=== PATIENT | female | born 1940 | race Caucasian/White ===

== ENCOUNTER 2023-10-15 10:48 | Outpatient (AMB) | payer MEDICARE, SELFPAY ==
--- NOTE | 2023-10-15 10:50 | A.SPINEOV_ITS ---
Intake Intake Visit Reasons: degenerative disc disease Intake Note: Ms. Padilla is here today c/o Left sided low back pain radiating down left leg. Literacy Education Professor Required: Yes Literacy Education Professor Name: Lin Colon Allergies metformin Adverse Reaction (Unknown, Verified 03/06/15 00:00) diarrhea Assessment & Plan Assessment & Plan (1) Lumbar radiculopathy: Code(s): M54.16 - Radiculopathy, lumbar region Plan Dear Blas Thank you for referring MRs Padilla to our office today. She is a very nice 83-year-old Jordanian-speaking female presents to the office today for evaluation of a multi year history of pain that is in her left low back which radiates down to her left anterior thigh stopping about the level of her knee. She gets intense knee pain. She does have arthritis in that knee but it has never responded to injections. The pain is significantly worse when she is standing and walking but is also present when she is sitting and can be present at night just not as bad as when she is walking. Her leg will feel weak at times as well. She takes Tylenol for the pain. She does not feel any right-sided pain. She was sent here today for evaluation with an MRI showing multilevel degenerative disc disease. To this point she has had no injections, physical therapy, chiropractic, acupuncture etc.. PMH: She has a history of diabetes with an elevated A1c generally around the 9 range. History of hypertension, thyroid disorder, her [facility] records also s tates she has coronary artery disease. History of GERD, fatty liver, constipation, stress incontinence, depression, osteopenia Social hx: She does not smoke, drink or use any recreational drugs Medications: Farxiga, Trulicity, baby aspirin, Zetia, Norvasc, Synthroid, Crestor, Prilosec, loratadine Allergies: Denies any allergies Physical exam: She is awake alert oriented, speaks Jordanian, able to demonstrate good strength of bilateral lower extremities with absent reflexes at the patella bilaterally. She is able to slowly stand out of a chair with a slightly antalgic gait. Imaging review: Patient has lumbar MRI done at [facility] and this shows multilevel degenerative disc disease. The primary finding on the right side is that there is compression of the right S1 nerve root in the lateral recess. I also believe that there is some subtle lateral recess stenosis at L3-4 and L4-5 on the left as well. This is seen best on the sagittal imaging. The radiologist does not note any of these findings. Impression: 83-year-old female presents to the office today with what sounds like a lumbar radiculopathy, I suspect coming from L3-4 because it is radiating down into the front/lateral part of her thigh into her knee. She will occasionally get some pain down below but most of it is centered around her thigh and knee. The only pertinent finding I see is that there is some lateral recess on the left at L3-4 and L4-5. To this point she has had no dedicated conservative treatment. She has not really interested in surgery she tells me, but rather medication to try to treat the pain. I told her she should contact your office if she is looking for pain management options, but I think down the road if this progresses she will likely end up undergoing some kind of decompres juany. Because of her A1c she has not able to get cortisone injections unfortunately. Also, with her A1c being so high we would need to have a meaningful improvement in that before we could consider her as a surgical candidate given the risk of infection would be significantly elevated. I told her I would be happy to see her back in 1 month and we can re-evaluate. Thank you for allowing us to care for your patient. The total time spent with this visit with this patient was 45 minutes reviewing history, physical exam, lumbar imaging review, and implementation of treatment plan or further diagnostic testing Donal Moran MD,PhD [facility] Coding Level of Care Code New Pt Level 4 (16760) Diagnoses Lumbar radiculopathy M54.16
== END 2023-10-15 11:43 | disposition home or self-care (01) ==
PROVIDERS: PCP Internal Medicine; Referring Provider Physician Assistant; Visit Provider Physician Assistant
DX: M54.16 Radiculopathy, lumbar region (principal)
CPT/HCPCS: 99204

== ENCOUNTER → 2023-10-15 10:48 | Outpatient (BNVA) | payer MEDICARE, SELFPAY | PROVIDERS: PCP Internal Medicine; Visit Provider Physician Assistant | DX: M54.16 Radiculopathy, lumbar region (principal) | CPT/HCPCS: 99202 ==